=== PATIENT | male | born 1995 | race Caucasian/White ===

== ENCOUNTER 2024-06-11 08:39 | Emergency (ER) | payer BC ==
[2024-06-11] MEDS ORDERED: Sodium Chloride 0.9% 20 ML SDV IV PRN (08:43)
[2024-06-11 08:53] LABS: BASOPHILS ABSOLUTE AUTO 0.09 K/uL (0.00-0.20); BASOPHILS PERCENT AUTO 0.4 % (0.0-1.0); EOSINOPHILS ABSOLUTE AUTO 0.04 K/uL (0.00-0.45); EOSINOPHILS PERCENT AUTO 0.2 % (0.0-6.0); HEMOGLOBIN 18.7 g/dL (14.0-18.0); IMMATURE GRAN ABSOLUTE AUTO 0.28 K/uL (0.00-0.05); IMMATURE GRAN PERCENT AUTO 1.3 % (0.0-0.4); LYMPHOCYTES ABSOLUTE AUTO 2.62 K/uL (1.00-4.80); LYMPHOCYTES PERCENT AUTO 12.4 % (24.0-44.0); MEAN CORPUSCULAR HEMOGLOBIN 29.3 pg (28.0-32.0); MEAN CORPUSCULAR HGB CONC 33.4 g/dL (32.0-36.0); MEAN CORPUSCULAR VOLUME 87.6 fL (83.0-99.0); MEAN PLATELET VOLUME 8.9 fL (9.4-12.4); MONOCYTES PERCENT AUTO 4.7 % (0.0-8.0); NEUTROPHILS ABSOLUTE AUTO 17.16 K/uL (1.80-7.70); PLATELET COUNT,PLT 453 K/uL (150-400); RED BLOOD CELL COUNT 6.39 M/uL (4.52-5.90); WHITE BLOOD CELL COUNT,WBC 21.19 K/uL (3.9-11.3)
[2024-06-11] MEDS: Sodium Chloride 0.9% 1,000 ML IV ONE ×2 (08:57→09:53)
[2024-06-11] MEDS: Sodium Chloride 0.9% 10 ML Syringe FLUSH PRN (08:58)
[2024-06-11] MEDS: Morphine 4 MG/ML Syringe IVPUSH ONE (08:58)
[2024-06-11] MEDS: Sodium Chloride 0.9% 2.5 ML Syringe FLUSH PRN (08:58)
[2024-06-11] MEDS: Ondansetron 4 MG/2 ML SDV IVPUSH ONE (08:58)
[2024-06-11 09:18] LABS: ALBUMIN 5.5 g/dL (3.4-5.0); BILIRUBIN TOTAL 0.6 mg/dL (0.2-1.0); CARBON DIOXIDE,CO2 28.6 mmol/L (21.0-32.0); CREATININE 1.4 mg/dL (0.8-1.3); EST CRCL DRUG DOSING (CG) 77.15 mL/min; POTASSIUM,K 4.5 mmol/L (3.5-5.1); PROTEIN TOTAL,TP 10.8 g/dL (6.4-8.2)
[2024-06-11 09:30] LABS: LACTIC ACID 1.8 mmol/L (0.4-2.0)
[2024-06-11] MEDS: Iopamidol 755 MG/ML 500 ML Multipack Bottle IVPUSH STA (10:30)
[2024-06-11] MEDS: Alum Hydro/Mag Hydro/Simeth XS 15 ML, Lidocaine 2% 5 ML PO ONE (11:41)
[2024-06-11] MEDS: Ketorolac 30 MG/ML SDV IVPUSH ONE (11:41)
== END 2024-06-11 11:48 | disposition home or self-care (01) ==
LOC: MW.ED 08:39
DX: A08.4 Viral intestinal infection, unspecified (principal); E86.0 Dehydration; R11.14 Bilious vomiting; Z91.030 Bee allergy status; Z79.899 Other long term (current) drug therapy; Z75.8 Other problems related to medical facilities and other health care
CPT/HCPCS: 36415; 74177; 80053; 83605; 83690; 85025; 96361; 96374; 96375; 99284; A9270; J1885; J2270; J2405; J3490; J7030; Q9967